=== PATIENT | male | born 1935 | race Caucasian/White ===

== ENCOUNTER 2017-09-04 09:17 | Inpatient (IN) | payer MEDICARE, OTHER ==
[~2017-09-04] VITALS: Ht 185.4 cm; Wt 77.5 kg
[~2017-09-04 09:17] MED LIST: ALBU90OI6 INH; ALBU90OI61; ALBU90OI61 INH; AMIO200 PO; ASPI325; ASPI325 PO; ATOR40TA PO; CARV6.25 PO; CENTRUM SILVER1 EAC1 PO; CIPR500 PO; CLOP75; CLOP75 PO; COLC.6; COLC.6 PO; COLCHICINE PO; COLCRYS0.6 MG PO; COUMADIN; Coq-10100 MG PO; DIPROLENE 0.05%; ESCI10 PO; FLAX PO; FURO40 PO; GEMF600 PO; HYDCHLSU PO; Isosorbide Mono30 MG PO; LEVFLO500 PO; LEVO750 PO; LEVSOD100; LEVSOD50 PO; LISI20; LISI20 PO; LISI5 PO; LOSA50 PO; Lasix40 MG PO; Lisinopril2.5 MG PO; MELA3 PO; MELOXICAM; METANX CAPSULE1 EACH PO; METPRE4DP PO; MOBISYL TOP; NAPR500ERA; NITR.6SL SL; SPIR25 PO; STRIVERDI RESPIM4 GM INH; THEO300ERA PO; TIOT18 INH; TOCO400 PO; TRAM50 PO; UBID100 PO; WELCHOL PO
[2017-09-04 09:59] LABS: BASOPHILS ABSOLUTE AUTO 0.03 K/mm3 (0.00-0.23); BASOPHILS PERCENT AUTO 0 % (0-2); EOSINOPHILS ABSOLUTE AUTO 0.13 K/mm3 (0.00-0.68); EOSINOPHILS PERCENT AUTO 1 % (0-6); Hematocrit 36.1 % (37.0-53.0); Hemoglobin 12.2 g/dL (13.5-17.5); IMMATURE GRAN ABSOLUTE AUTO 0.03 K/mm3 (0.00-0.10); IMMATURE GRAN PERCENT AUTO 0 % (0-1); LYMPHOCYTES ABSOLUTE AUTO 1.12 K/mm3 (0.84-5.20); LYMPHOCYTES PERCENT AUTO 11 % (21-46); MONOCYTES ABSOLUTE AUTO 0.84 K/mm3 (0.16-1.47); MONOCYTES PERCENT AUTO 9 % (4-13); Mean Corpuscular HGB 30.7 pg (26.0-34.0); Mean Corpuscular HGB Conc 33.8 g/dL (31.5-36.5); Mean Corpuscular Volume 91 fL (80-100); Mean Platelet Volume 9.6 fL (9.1-12.4); NEUTROPHILS ABSOLUTE AUTO 7.64 K/mm3 (1.96-9.15); NEUTROPHILS PERCENT AUTO 78 % (41-73); Platelet Count 277 K/mm3 (150-400); RDW Coefficient Variation 16.7 % (11.7-14.2); RDW Standard Deviation 54.9 fL (35.1-46.3); Red Blood Cell Count 3.97 M/mm3 (4.30-5.90); White Blood Cell Count 9.79 K/mm3 (4.00-11.30)
[2017-09-04 10:52] LABS: Albumin, Blood 3.2 g/dL (3.4-5.0); Albumin/Globulin Ratio 0.8 (0.8-1.8); Beta-hydroxybutyrate 9.9 mg/dL (0.2-2.8); Bun/Creatinine Ratio 20.2 (12.0-20.0); Calcium, Blood 9.1 mg/dL (8.5-10.1); Creatinine, Blood 3.67 mg/dL (0.60-1.20); Globulin, Blood 4.2 g/dL (2.2-4.0); Potassium, Blood 4.2 mmol/L (3.5-5.5); Total Protein, Blood 7.4 g/dL (6.4-8.2); Troponin I 0.069 ng/mL (0.000-0.040)
[2017-09-04] MEDS ORDERED: MAGOXI400 PO (15:53)
[2017-09-04] MEDS ORDERED: Milk Of Ma400 MG/5 M PO (15:54)
[2017-09-04] MEDS ORDERED: MIRALAX17 GM PO (15:55)
[2017-09-04] MEDS ORDERED: NITR.4SL SL (15:56)
[2017-09-04] MEDS ORDERED: Senna8.6 MG PO (15:57)
[2017-09-04] MEDS ORDERED: DOCU100 PO (15:57)
[2017-09-04] MEDS ORDERED: THEO300ERA PO (15:58)
[2017-09-04] MEDS ORDERED: QUET25 PO (15:59)
[2017-09-04] MEDS ORDERED: ACET325 PO (15:59)
[2017-09-04] MEDS ORDERED: ALLO300 PO (16:00)
[2017-09-04 20:27] LABS: Source, Urine Clean Catch
[2017-09-04 20:33] LABS: Bilirubin, Urine Neg (Neg); Blood, Urine Neg (Neg); Glucose Qualitative, Urine Neg (Neg); Ketones, Urine Neg (Neg); Leukocyte Esterase, Urine Neg (Neg); Nitrite, Urine Neg (Neg); Protein, Urine Neg (Neg); Urobilinogen, Urine NORM (Normal)
[2017-09-04 20:35] LABS: Appearance, Urine Clear (Clear); Color, Urine Yellow (P-Yellow)
[2017-09-05 05:29] LABS: BASOPHILS ABSOLUTE AUTO 0.05 K/mm3 (0.00-0.23); BASOPHILS PERCENT AUTO 1 % (0-2); EOSINOPHILS ABSOLUTE AUTO 0.39 K/mm3 (0.00-0.68); EOSINOPHILS PERCENT AUTO 5 % (0-6); Hematocrit 33.1 % (37.0-53.0); IMMATURE GRAN ABSOLUTE AUTO 0.01 K/mm3 (0.00-0.10); IMMATURE GRAN PERCENT AUTO 0 % (0-1); LYMPHOCYTES ABSOLUTE AUTO 1.01 K/mm3 (0.84-5.20); LYMPHOCYTES PERCENT AUTO 13 % (21-46); MONOCYTES ABSOLUTE AUTO 0.89 K/mm3 (0.16-1.47); MONOCYTES PERCENT AUTO 12 % (4-13); Mean Corpuscular HGB 30.2 pg (26.0-34.0); Mean Corpuscular HGB Conc 33.2 g/dL (31.5-36.5); Mean Corpuscular Volume 91 fL (80-100); Mean Platelet Volume 9.4 fL (9.1-12.4); NEUTROPHILS ABSOLUTE AUTO 5.36 K/mm3 (1.96-9.15); NEUTROPHILS PERCENT AUTO 70 % (41-73); Platelet Count 221 K/mm3 (150-400); RDW Coefficient Variation 16.7 % (11.7-14.2); Red Blood Cell Count 3.64 M/mm3 (4.30-5.90); White Blood Cell Count 7.71 K/mm3 (4.00-11.30)
[2017-09-05 05:54] LABS: Alanine Aminotransfer (ALT/SGP 14 U/L (12-78); Albumin/Globulin Ratio 0.9 (0.8-1.8); Alk Phos 108 U/L (50-136); Anion Gap 9 mmol/L (6-16); Aspartate Aminotrans (AST/SGOT 26 U/L (12-37); Bilirubin, Total 0.7 mg/dL (0.1-1.0); Blood Urea Nitrogen 73 mg/dL (8-24); Bun/Creatinine Ratio 24.6 (12.0-20.0); CO2, Blood 25 mmol/L (21-32); Calcium, Blood 9.2 mg/dL (8.5-10.1); Chloride, Blood 106 mmol/L (98-108); Creatinine, Blood 2.97 mg/dL (0.60-1.20); Globulin, Blood 3.3 g/dL (2.2-4.0); Glomerular Filtration Rate 22 (60-); Glucose, Blood 107 mg/dL (70-99); Phosphorus, Blood 4.4 mg/dL (2.5-4.9); Potassium, Blood 4.1 mmol/L (3.5-5.5); Sodium, Blood 140 mmol/L (136-145); Total Protein, Blood 6.3 g/dL (6.4-8.2)
--- NOTE | 2017-09-05 07:17 | NUR ---
ns ran whole shift, pain medicated successfully, reddened area creamed and positioned off it, took medication well, call light in reach, able to make needs known
[2017-09-05 11:11] LABS: Source, Urine Catheter
[2017-09-05 11:26] LABS: Bilirubin, Urine Neg (Neg); Blood, Urine 1+ (Neg); Glucose Qualitative, Urine Neg (Neg); Ketones, Urine Neg (Neg); Leukocyte Esterase, Urine Neg (Neg); Nitrite, Urine Neg (Neg); Protein, Urine Neg (Neg); Specific Gravity, Urine 1.015 (1.003-1.022); Urobilinogen, Urine NORM (Normal)
[2017-09-05 12:04] LABS: Appearance, Urine Clear (Clear); Color, Urine Yellow (P-Yellow)
[2017-09-05 12:08] LABS: Bacteria Few /hpf; Squamous Epithelial Cells Not Seen /hpf (Few); White Blood Cells, Urine 0-2 /hpf (0-5)
--- NOTE | 2017-09-05 12:45 | NUR ---
PT ARRIVED TO PCU 3 VIA BED. AWAKE. [place]. DOES PROVIDE SIMPLE APPROPRIATE ANSWERS TO QUESTIONS. DOES STATE HAVING GEN PAIN, NOT ABLE TO LOCALIZE IT. WHEN ASKED ABOUT HIS PAIN LEVEL, HE STATED "MUCH BETTER THAN EARLIER". VSS. PT REPOSITIONED FOR COMFORT. CONT. TO MONITOR,
--- NOTE | 2017-09-05 14:47 | NUR ---
Patient transfused to PCU at approx 1230 09/05/17. This RN received a call that patient was more lethargic in the room. Patient's blood pressure was 50s/20s. nurse's companion and patient's physician in room. IV boluses given. MD ordered patient to be transferred to PCU for further monitoring. Patient BP on transfer 103/38. Maintenance fluids infusing on transfer. Report called to Receiving RN.
--- NOTE | 2017-09-05 17:35 | NUR ---
Kristen visit with Mr. Lopez who tells me he is feeling much better today than yesterday. Yesterday, he felt like he was dying. He spoke to me at length about his and her recent . This has been very difficult for him and he became tearful when speaking about her. Gentle comfort and bereavement counselor aid provided. According to staff, family has been concerned that Mr. Lopez is "giving up." When I presented this to him, he admits to thinking about it yesterday, but now wants to "fight." He says that is what his would want for him. Mr. Lopez was welcoming and receptive. His was the "yazidi one." He admits to being uncertain about an afterlife. He states he is not afraid of . I will remain available to this pt and family.
--- NOTE | 2017-09-05 18:21 | NUR ---
1400 ASSUMED CARE, PT ALERT AND ORIENTED X 2, VSS, RESPIRATIONS EVEN AND UNLABORED AT REST ON O2/2L VIA NC, PT IS PLEASANT AND COOPERTTIVE, NO S/S DISTRESS NOTED, BED IN LOWEST POSITION, CALL LIGHT WITHIN REACH 1630 PT TURNED AND MEPILEX APPLIED TO COCCYX FOR PROTECTION, PT HAS NOT URINATED SINCE TRANSFER, BLADDER SCANNED AND HE HAS >899, DR. DAVIS CALLED AND HE ORDERS TO INSERT NAJERA CATHETER, COUDE 14 FR CATHETER INSERTED WITHOUT DIFFICULTY, PT HAD 800 ML OUT INITIALLY, WILL CONTINUE TO MONITOR CLOSELY, VSS, NO S/S DISTRESS NOTED, BED IN LOWEST POSITION, CALL LIGHT WITHIN REACH, 1800 NAJERA REMAINS PATENT, PT IS EATING DINNER, TOLERATING WELL, NO S/S DISTRESS NOTED, PT STATES HE IS MUCH MORE COMFORTABLE SINCE THE CATHETER INSERTION, BED IN LOWEST POSITION, CALL LIGHT WITHIN REACH,
--- NOTE | 2017-09-05 21:58 | NUR ---
BEGINNING OF SHIFT ASSUMED CARE AT 1900. BEDSIDE REPORT RECIEVED FROM ELMER BAKER. PT LAYING IN BED. IV FLUIDS INFUSING AT 150 ML/HR. RATE TO BE TURNED DOWN TO 75 ML/HR WHEN SBP IS GREATER THAN 100. ORDER REVIEWED WITH ELMER BAKER. PT STATES HE IS HAVING PAIN. MEDS PER ORDERS. SHIFT ASSESSMENT COMPLETED. RATE OF IV FLUIDS WAS DECREASED BUT UPON REASSESSMENT, PT'S SBP WAS IN 80s. INFUSION RETURNED TO PREVIOUS RATE OF 150 ML/HR. LUNGS HAVE FINE BIBASILAR CRACKLES. WILL CONTINUE TO CLOSELY MONITOR. BED IN LOWEST POSITION. CALL LIGHT IN REACH. PT DENIES NEED AT THIS TIME.
[2017-09-06 04:12] LABS: Hemoglobin 10.1 g/dL (13.5-17.5)
[2017-09-06 04:35] LABS: Magnesium, Blood 1.7 mg/dL (1.6-2.4)
[2017-09-06 04:39] LABS: Albumin, Blood 2.7 g/dL (3.4-5.0); Anion Gap 10 mmol/L (6-16); Blood Urea Nitrogen 54 mg/dL (8-24); Bun/Creatinine Ratio 26.9 (12.0-20.0); CO2, Blood 21 mmol/L (21-32); Calcium, Blood 8.5 mg/dL (8.5-10.1); Chloride, Blood 111 mmol/L (98-108); Creatinine, Blood 2.01 mg/dL (0.60-1.20); Glomerular Filtration Rate 34 (60-); Glucose, Blood 108 mg/dL (70-99); Phosphorus, Blood 3.1 mg/dL (2.5-4.9); Potassium, Blood 3.9 mmol/L (3.5-5.5); Sodium, Blood 142 mmol/L (136-145)
--- NOTE | 2017-09-06 05:51 | NUR ---
SHIFT SUMMARY PT A&O X 1. OFTEN FORGETS WHERE HE IS. FOLLOWS DIRECTIONS APPROPRIATELY. PT IS PAINFUL AND REPOSITIONING CAUSES HIM PAIN. PT REPOSITIONED Q2H. PT ASSISTED TO SIT UP ON SIDE OF BED 2 TIMES THIS SHIFT. PT HAS NOT SLEPT FOR MORE THAN 10-15 MINUTES AT A TIME T/O SHIFT. PT ON 2 LPM NC, WHICH HE STATES IS HIS HOME O2 USE. NAJERA CATHETER REMAINS SECURED TO BED, PATENT AND DRAINING. THIS RN PLACED CALL TO DR WANG AT 2250 ON 09/05/17 REGARDING PT'S BLOOD PRESSURE. NEW ORDERS GIVEN. PT HAS NOT MADE ATTEMPT TO GET OOB INDEPENDENTLY. NS INFUSING AT 75 ML/HR. BED IN LOWEST POSITION. CALL LIGHT IN REACH. WILL CONTINUE TO CLOSELY MONITOR UNTIL CARE HANDOFF AND BEDSIDE REPORT WITH DAY RN.
--- NOTE | 2017-09-06 10:36 | NUR ---
AM visit. Pt disoriented to place and time. He says, "They have me all drugged up". When I asked if he knew where he was, he said, "down the street from [place]." When asked where he lives he could only say [place]. I offered to help him eat bites off the breakfast tray. He declined but asked for a sip of cold water, which I helped him get using a straw. I changed his saturated top bedding. He has a cuenca catheter placed. He could not tell me if he was hurting anywhere. PLAN: Speak with daughter further about goals of care and try to catch pt in a more lucid moment. [place] reports that pt became very paranoid and fearful during his last rehab stay but cleared a lot when he returned home.
--- NOTE | 2017-09-06 11:17 | NUR ---
Mr. Lopez is very withdrawn this morning. He stares, eyes wide, at the ceiling. He denies pain or fear, but was unable to explain to me what he was seeing. He mumbles softly and is difficult to understand. Sat beside him for awhile providing calm presence and assurance of care. I will remain available to this pt and family.
--- NOTE | 2017-09-06 19:15 | NUR ---
SHIFT SUMMARY PT RESTING IN BED THROUGHOUT THE DAY. VSS EXCEPT AFTERNOON SBP 90, MIDODRINE GIVEN ORDERED. ALERT AND ORIENTED TO PERSON ONLY. PT PULLING AT LINES, REORIENTED TO PLACE. C/O PAIN IN KNEES, MEDICATED WITH PRN PAIN MEDS X1. NAJERA DRAINING CLEAR YELLOW URINE.
[2017-09-07 04:38] LABS: Hematocrit 31.8 % (37.0-53.0); Hemoglobin 10.4 g/dL (13.5-17.5)
[2017-09-07 04:58] LABS: Albumin, Blood 2.8 g/dL (3.4-5.0); Anion Gap 8 mmol/L (6-16); Blood Urea Nitrogen 39 mg/dL (8-24); Bun/Creatinine Ratio 27.5 (12.0-20.0); CO2, Blood 22 mmol/L (21-32); Chloride, Blood 112 mmol/L (98-108); Creatinine, Blood 1.42 mg/dL (0.60-1.20); Glomerular Filtration Rate 51 (60-); Glucose, Blood 106 mg/dL (70-99); Magnesium, Blood 1.6 mg/dL (1.6-2.4); Phosphorus, Blood 2.4 mg/dL (2.5-4.9); Potassium, Blood 4.1 mmol/L (3.5-5.5); Sodium, Blood 142 mmol/L (136-145)
[2017-09-07 05:01] LABS: PSA, %Free 26.8 %
--- NOTE | 2017-09-07 05:59 | NUR ---
Patient slept some during the night. He had some moments of confusion, he is tugging at lines and cords, and pulled out his LFA IV. No significant changes since assessmemt. Will continue to monitor until give report to day RN.
--- NOTE | 2017-09-07 11:23 | NUR ---
0730-ASSUMED CARE OF PT. PT IS CONFUSED, AWAKE, GARBLE SPEECH. DENIES PAIN AT THIS TIME. 0932-DUE MEDS WERE GIVEN. PT WAS ABLE TO SWALLOW MEDS WHOLE WITHOUT ANY DIFFICULTY. PT TOOK MEDS WITH APPLESAUCE. 1045-DR. GOMEZ AT BEDSIDE TALKING TO PT AND FAMILY. PT WILL BE TRANSFERED TO MEDICAL FLOOR WHEN BED IS AVAILABL.E 1057-OLIVIA PHYSCAL THERAPIST AT BEDSIDE TO WORK WITH PATIENT. MEDICATED PT FOR GENERALIZED PAIN.
--- NOTE | 2017-09-07 11:36 | NUR ---
PATIENT IS SITTING ON THE CHAIR AT THIS TIME.
--- NOTE | 2017-09-07 13:32 | NUR ---
REPORT GIVEN ELMER SOUTH IN MEDICAL FLOOR. PT WILL BE TRANSFERED TO ROOM 346.
--- NOTE | 2017-09-07 14:18 | NUR ---
PT WAS TRANSFERED TO ROOM 346 AT 1400. PT IS A 2 PERSON MAX ASSIST WITH A HELP OF A LIFT.
--- NOTE | 2017-09-07 15:49 | NUR ---
CALLED DR. HANSON'S OFFICE REGARDING CONSULT. OFFICE SAID THEY WOULD NOTIFY DR. HANSON OF CONSULT BY THE END OF THE DAY.
--- NOTE | 2017-09-07 17:24 | NUR ---
DR LAZAR AT BEDSIDE.
--- NOTE | 2017-09-07 18:10 | NUR ---
SHIFT SUMMARY- PT PCU TRANSFER. PT CONFUSED AND FORGETFUL. A/O X2. PT PULLING AT CATH AND IV. INCOHERENT RAMBLING. SIT TO STAND TRANSFERS, 2 PERSON ASSIST. HX OF CVA IN 2016. SPUTUM SAMPLE NEEDED. MIDODRINE HELD DUE TO BP BEING 133/62. VALENTIN IN TO SEE PT. IV RUNNING NS AT 50ML/HR. DAUGHTER IN TO SEE PT. DAUGHTER STATES PT NEEDS TO BE CHEMICALLY RESTRAINED DUE TO THE PT HAVING PARANOID DELUSIONS. IN TO ASSESS PT. PT IN BED RAMBLING INCOHERENTLY. PT COOPERATIVE AND ABLE TO FOLLOW INSTRUCTIONS. PT ABLE TO IDENTIFY SELF, DAUGHTER AND STAFF. PT NO APPARENT THREAT TO SELF OR OTHERS.
--- NOTE | 2017-09-08 04:54 | NUR ---
PT HAS SLEPT ONLY BRIEF PERIODS OF TIME ALL SHIFT. REMAINS DISORIENTED AND CONFUSED. TRIES TO GET OOB W/O SUCCESS. FREQUENT REDIRECTION. MUCH EMOTIONAL SUPPORT AND REASSURANCE REQUIRED FOR THIS PT.
[2017-09-08 05:10] LABS: Hematocrit 32.2 % (37.0-53.0); Hemoglobin 10.7 g/dL (13.5-17.5); Mean Corpuscular HGB Conc 33.2 g/dL (31.5-36.5); Mean Corpuscular Volume 90 fL (80-100); Mean Platelet Volume 9.9 fL (9.1-12.4); Platelet Count 190 K/mm3 (150-400); RDW Standard Deviation 55.1 fL (35.1-46.3); Red Blood Cell Count 3.57 M/mm3 (4.30-5.90); White Blood Cell Count 7.79 K/mm3 (4.00-11.30)
[2017-09-08 05:59] LABS: Albumin, Blood 2.8 g/dL (3.4-5.0); Anion Gap 11 mmol/L (6-16); Blood Urea Nitrogen 27 mg/dL (8-24); Bun/Creatinine Ratio 23.7 (12.0-20.0); CO2, Blood 19 mmol/L (21-32); Calcium, Blood 9.4 mg/dL (8.5-10.1); Chloride, Blood 109 mmol/L (98-108); Creatinine, Blood 1.14 mg/dL (0.60-1.20); Glomerular Filtration Rate >60 (60-); Glucose, Blood 103 mg/dL (70-99); Magnesium, Blood 1.5 mg/dL (1.6-2.4); Phosphorus, Blood 2.2 mg/dL (2.5-4.9); Potassium, Blood 3.6 mmol/L (3.5-5.5); Sodium, Blood 139 mmol/L (136-145)
--- NOTE | 2017-09-08 09:30 | NUR ---
PT PLEASANT CONFUSED. 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 TOLD ME OF DATE, PRESIDENT, WHY AT HOSP, FAMILY MEMBERS. DENIES PAIN. HOWEVER, DOES HAVE REGULAR HALLUCINATIONS. DOES HAVE VISUAL AND AUDITORY HALLUCIANTIONS. APPEARS CONFUSED AT TIMES. DENIES PAIN. H/R REG, NO MURMER NOTED. NO TELE. LUNGS CLEAR, RESP EASY, UNLABORED. ON R/A. BT X4 LAST BM PER PT YEST. IN ATTENDS. 2 HEAVY ASST. TO BSC. BED IN LOW POSITION, CALL LITE IN REACH. BED ALARM ON FOR SAFETY.
--- NOTE | 2017-09-08 16:47 | NUR ---
PT A/O WITH HALUCINATIONS TODAY. REFUSED PAIN MEDS TWICE BUT STATES SLIGHT PAIN. CALLED AND IS CUTTING BACK MEDS MAY BE REASON FOR HALLUCINATIONS. BED IN LOW POSITION, CALL LITE IN REACH. BED ALARM ON FOR SAFETY
--- NOTE | 2017-09-08 16:49 | NUR ---
CALLED DR RINALDI RE PT STATES ANXIOUS. REQUESTED MEDS. SHE TO REVIEW AND CALL BACK. DID CALL BACK. SHE STATES PROB TOO MANY MEDS CAUSING HALUCINATIONS. IS CUTTING BACK. NO ANXIETY MED TO BE AVAILABLE.
--- NOTE | 2017-09-09 05:56 | NUR ---
PT RESTLESS ALL NIGHT BUT COOPERATIVE. NO SIGNIFICANT CHANGE IN CONDITION. EMOTIONQL SUPPORT QND REASSURANCE PROVIDED THROUGHOUT SHIFT
[2017-09-09 08:29] LABS: Hematocrit 35.7 % (37.0-53.0); Hemoglobin 11.8 g/dL (13.5-17.5)
[2017-09-09 08:35] LABS: Albumin, Blood 2.8 g/dL (3.4-5.0); Anion Gap 9 mmol/L (6-16); Blood Urea Nitrogen 20 mg/dL (8-24); Bun/Creatinine Ratio 20.2 (12.0-20.0); CO2, Blood 22 mmol/L (21-32); Calcium, Blood 9.1 mg/dL (8.5-10.1); Chloride, Blood 111 mmol/L (98-108); Creatinine, Blood 0.99 mg/dL (0.60-1.20); Glomerular Filtration Rate >60 (60-); Glucose, Blood 109 mg/dL (70-99); Magnesium, Blood 1.6 mg/dL (1.6-2.4); Phosphorus, Blood 2.7 mg/dL (2.5-4.9); Potassium, Blood 3.8 mmol/L (3.5-5.5); Sodium, Blood 142 mmol/L (136-145)
--- NOTE | 2017-09-09 16:58 | NUR ---
ALERT TO SELF, RELATIVES AND WHERE HE IS. POOR APPETITE. CLINIMEX STARTED AND DIETITIAN IN TO EVAL AND ORDER APPROPRIATE SNACKS. COOPERATIVE. NAJERA DRAINING. HEAVY 2 PERSON MAX TO BSC. COOPERATIVE. BED IN LOW POSITION. CALL LIGHT WITHIN REACH. WILL CONTINUE TO MONITOR.
[2017-09-10 05:29] LABS: BASOPHILS ABSOLUTE AUTO 0.03 K/mm3 (0.00-0.23); BASOPHILS PERCENT AUTO 0 % (0-2); EOSINOPHILS ABSOLUTE AUTO 0.25 K/mm3 (0.00-0.68); EOSINOPHILS PERCENT AUTO 3 % (0-6); Hematocrit 30.3 % (37.0-53.0); Hemoglobin 10.1 g/dL (13.5-17.5); IMMATURE GRAN ABSOLUTE AUTO 0.02 K/mm3 (0.00-0.10); IMMATURE GRAN PERCENT AUTO 0 % (0-1); LYMPHOCYTES ABSOLUTE AUTO 0.71 K/mm3 (0.84-5.20); LYMPHOCYTES PERCENT AUTO 10 % (21-46); MONOCYTES ABSOLUTE AUTO 0.73 K/mm3 (0.16-1.47); MONOCYTES PERCENT AUTO 10 % (4-13); Mean Corpuscular HGB 30.1 pg (26.0-34.0); Mean Corpuscular HGB Conc 33.3 g/dL (31.5-36.5); Mean Corpuscular Volume 90 fL (80-100); Mean Platelet Volume 9.3 fL (9.1-12.4); NEUTROPHILS ABSOLUTE AUTO 5.55 K/mm3 (1.96-9.15); NEUTROPHILS PERCENT AUTO 76 % (41-73); Platelet Count 172 K/mm3 (150-400); RDW Coefficient Variation 17.5 % (11.7-14.2); RDW Standard Deviation 57.4 fL (35.1-46.3); Red Blood Cell Count 3.35 M/mm3 (4.30-5.90); White Blood Cell Count 7.29 K/mm3 (4.00-11.30)
[2017-09-10 05:50] LABS: Alanine Aminotransfer (ALT/SGP 12 U/L (12-78); Albumin, Blood 2.3 g/dL (3.4-5.0); Albumin/Globulin Ratio 0.8 (0.8-1.8); Alk Phos 85 U/L (50-136); Anion Gap 7 mmol/L (6-16); Aspartate Aminotrans (AST/SGOT 16 U/L (12-37); Bilirubin, Total 0.7 mg/dL (0.1-1.0); Blood Urea Nitrogen 22 mg/dL (8-24); Bun/Creatinine Ratio 23.7 (12.0-20.0); CO2, Blood 24 mmol/L (21-32); Calcium, Blood 8.6 mg/dL (8.5-10.1); Chloride, Blood 116 mmol/L (98-108); Creatinine, Blood 0.93 mg/dL (0.60-1.20); Glomerular Filtration Rate >60 (60-); Glucose, Blood 119 mg/dL (70-99); Magnesium, Blood 1.8 mg/dL (1.6-2.4); Phosphorus, Blood 2.6 mg/dL (2.5-4.9); Potassium, Blood 3.4 mmol/L (3.5-5.5); Sodium, Blood 147 mmol/L (136-145); Total Protein, Blood 5.3 g/dL (6.4-8.2)
--- NOTE | 2017-09-10 06:21 | NUR ---
PT HAS REMAINED ORIENTED AND PLEASANT ALL [employer]ER[employer] CONSULTANT. DENIES DISTRESS OF ANY KIND. EMOTIONAL SUPPORT AND REASSURANCE PROVIDED THROUGHOUTBSHIFT.
--- NOTE | 2017-09-10 18:37 | NUR ---
ASSUMED CARE OF PT- *LATE ENTRY* PT SLEEPING, RECIEVED REPORT FROM BARREL LEVELER RN. WILL ASSES PT SHORTLY.
--- NOTE | 2017-09-10 18:41 | NUR ---
SHIFT SUMMARY- PT HAS A PRESSURE SORE ON THE LEFT HEEL, MEPILEX PLACED, PICTURES TAKEN. PT REPOSITIONED FREQUENTLY T/O THE DAY. PT HAS A NAJERA, PATENT AND DRAINING. PT IV RUNNING D5 AT 50ML/HR. SECOND IV IS SL. CALL LIGHT IN REACH. PLAN IS FOR PT TO POTENTIALLY DC TO SNF TOMORROW PER PREVIOUS REPORT.
--- NOTE | 2017-09-11 02:37 | NUR ---
PT IS IMMOBILE HAS CHRONIC PAIN FROM GOUT AND OTHER PAIN ISSUES. NO HALLUCINATIONS. HEEL PROTECTERS PLACED TO BILAT FEET. DRY PROTECTIVE DRESSING TO LT HEEL DECUB. HAVE EGGCRATE MATTRESS PAD TO APPLY TO BED. ABLE TO USE CALLBELL AND HAD BOWEL MOVENET ON BEDPAN . CONTINUES WITH ANJERA CATH FOR OBSTRUCTION/RETENTION. GAVE BOWEL CARE WITH HELPFUL EFFECT. CHRONIC PAIN TREATED WITH TYLENOL 325 MG WITH HELPFUL EFFECT. APPETITE IMPROVED ABLE TO FEED SELF.
[2017-09-11 05:11] LABS: Hematocrit 27.4 % (37.0-53.0); Hemoglobin 9.2 g/dL (13.5-17.5)
[2017-09-11 05:34] LABS: Albumin, Blood 2.1 g/dL (3.4-5.0); Anion Gap 9 mmol/L (6-16); Blood Urea Nitrogen 19 mg/dL (8-24); Bun/Creatinine Ratio 20.1 (12.0-20.0); CO2, Blood 23 mmol/L (21-32); Chloride, Blood 110 mmol/L (98-108); Creatinine, Blood 0.95 mg/dL (0.60-1.20); Glomerular Filtration Rate >60 (60-); Glucose, Blood 97 mg/dL (70-99); Magnesium, Blood 1.7 mg/dL (1.6-2.4); Phosphorus, Blood 2.5 mg/dL (2.5-4.9); Potassium, Blood 3.4 mmol/L (3.5-5.5); Sodium, Blood 142 mmol/L (136-145)
--- NOTE | 2017-09-11 05:55 | NUR ---
PLACED EGGCRATE MATTRESS ON PT'S BED DUE TO IMMOBILITY ON ANTICOAGULANTS WHO HAS LT HEEL PRESSURE AREA LT HEEL. ELEVATED BILAT HEELS AND TURNED Q 2 HOURS. PT IS STIFF NEEDS 2 MAX FOR BED MOBILITY. MEDICATED X 1 WITH TYLENOL 325 MG WITH HELPFUL EFFECT FOR CHRONIC PAIN. IMMOBILY. ABLE TO FEED SALF WITH SETUP. ABLE TO COMMINICATE. CONTINUES ON D5 VIA IV AT 50 ML HR. ON ROOM AIR.
--- NOTE | 2017-09-11 08:28 | NUR ---
PATIENTS BREAKFAST TRAY WAS BROUGHT INTO ROOM AND PATIENT REFUSED TRAY. PATIENT STATED HE DID NOT WANT IT HE WAS NOT HUNGRY AND THAT IT WAS TO EARLY FOR HIM TO EAT. I OFFERED TO LEAVE TRAY IN ROOM AND PATIENT DECLINED. I EXPLAINED TO PATIENT THAT IF AND WHEN HE GETS HUNGRY TO LET ME KNOW AND WE CAN GET HIM SOMETHING TO EAT. PATIENT UNDERSTOOD AND SAID OK. PATIENTS TRAY WAS REMOVED FROM ROOM.
--- NOTE | 2017-09-11 12:08 | NUR ---
PATIENT IS UP IN ROOM IN CHAIR. PATIENT AMBULATED FROM BED TO CHAIR WITH WALKER AND 2 PERSON MAX ASSIST.
--- NOTE | 2017-09-11 12:35 | NUR ---
PATIENT WAS UNABLE TO GET UP FROM CHAIR WITH 2 PERSON ASSIST. A SIT TO STAND LIFT WAS USED TO GET PATIENT OUT OF CHAIR ONTO COMMODE.
[2017-09-11] MEDS ORDERED: CEFU500T30 PO (15:05)
[2017-09-11] MEDS ORDERED: Hair, Skin & N1 EACH PO (15:06)
[2017-09-11] MEDS ORDERED: HYDR1TAB94 PO (15:06)
[2017-09-11] MEDS ORDERED: COLCHICINE0.6 MG PO (15:06)
[2017-09-11] MEDS ORDERED: PANT40 PO (15:06)
--- NOTE | 2017-09-11 15:25 | NUR ---
Met pt. in bed and talking with her daughter in the room on visit pt. is doing much better . Prayed and blessed pt.
--- NOTE | 2017-09-11 16:27 | NUR ---
DISCHARGE REPORT CALLED TO LE[facility]NE AT [facility], QUESTIONS/CONCERNS ANSWERED. WAITING FOR TRANSPORT AT THIS TIME.
--- NOTE | 2017-09-11 17:15 | NUR ---
Visited patient who is alert, oriented and able to converse with me today. This is a complete change from 5 days ago when I last saw him. He reports his primary pain is his ankle, which dr feels may be a flare up of his gout. Pt reports new RX in addition to allopurinol was ordered. Pt seems pleased to be going to [facility] today. We discussed the need to maximize his rehab opportunity and need to stay as long as he is benefitting and allowed to stay so that he can be optimally independent and safe to return home. Spoke with chantale, at length by phone. She is hopeful that her dad's improved mentation from his previous stay immediately after his stroke will allow him to do better before being released home again. She had questions about palliative care and I answered her questions and invited her to call/contact us with any concerns she, her dad or family may have in the future. I let her know if he was admitted into the hospital again in the future that we would visit him and touch bases with her also if possible. She appreciated that.
== END 2017-09-11 16:52 | DRG 682 ==
LOC: ER 09:17 → MEDS 11:26 → PCU 09-05 12:30 → MEDS 09-07 14:10
PROVIDERS: Emergency Medicine; Internal Medicine; Internal Medicine Nephrology; ADMIT Internal Medicine
DX: N17.9 Acute kidney failure, unspecified (principal); J18.9 Pneumonia, unspecified organism; R57.9 Shock, unspecified; G92 Toxic encephalopathy; I50.43 Acute on chronic combined systolic (congestive) and diastolic (congestive) heart failure; E46 Unspecified protein-calorie malnutrition; J96.11 Chronic respiratory failure with hypoxia; E87.0 Hyperosmolality and hypernatremia; E11.22 Type 2 diabetes mellitus with diabetic chronic kidney disease; I13.0 Hypertensive heart and chronic kidney disease with heart failure and stage 1 through stage 4 chronic kidney disease, or unspecified chronic kidney disease; I69.354 Hemiplegia and hemiparesis following cerebral infarction affecting left non-dominant side; N28.89 Other specified disorders of kidney and ureter; Z99.81 Dependence on supplemental oxygen; I48.2 Chronic atrial fibrillation; R91.8 Other nonspecific abnormal finding of lung field; I25.10 Atherosclerotic heart disease of native coronary artery without angina pectoris; J44.9 Chronic obstructive pulmonary disease, unspecified; E03.9 Hypothyroidism, unspecified; I73.9 Peripheral vascular disease, unspecified; Z66 Do not resuscitate; N18.9 Chronic kidney disease, unspecified; D63.1 Anemia in chronic kidney disease; I95.9 Hypotension, unspecified; I25.5 Ischemic cardiomyopathy; E83.39 Other disorders of phosphorus metabolism; E83.42 Hypomagnesemia; N40.1 Benign prostatic hyperplasia with lower urinary tract symptoms; R33.8 Other retention of urine
CPT/HCPCS: 36415; 71010; 71020; 74176; 76770; 80053; 80069; 81001; 81003; 82010; 82947; 83605; 83735; 84100; 84153; 84154; 84484; 85014; 85018; 85025; 85027; 87040; 87086; 93005; 93010; 94640; 94760; 96361; 96365; 96367; 96375; 96376; 97110; 97163; 97166; 97530; 97535; 99285; G8978; G8979; G8987; G8988; J0456; J0696; J1170; J1644; J2001; J2405; J3475; J3480; J7030; J7040; J7050; J7060; J7070; J7131